=== PATIENT | male | born 1980 | race Asian ===

== ENCOUNTER 2016-11-29 14:04 | Emergency (ER) | payer OTHER ==
[2016-11-29 14:11] VITALS: BP 133/83
--- NOTE | 2016-11-29 14:50 | UC ---
Lower Extremity/Ankle HPI - HPI Summary HPI Summary: 36 yo male with right great toe pain x 1 day His reminded him that he had a trivial injury to that foot the day before the onset of pain red pain with wt bearing - History of Current Complaint Chief Complaint: UCLowerExtremity Stated Complaint: TOE PAIN Time Seen by Provider: 11/29/16 14:38 Hx Obtained From: Patient Onset/Duration: Gradual Onset, Lasting Hours Severity Initially: Moderate Severity Currently: Moderate Pain Intensity: 6 Pain Scale Used: 0-10 Numeric Aggravating Factor(s): Standing, Ambulation Alleviating Factor(s): Rest, Elevation, OTC Meds Able to Bear Weight: Yes - Allergies/Home Medications Allergies/Adverse Reactions: Allergies Allergy/AdvReac Type Severity Reaction Status Date / Time No Known Allergies Allergy Verified 11/29/16 14:11 PMH/Surg Hx/FS Hx/Imm Hx Previously Healthy: Yes - Surgical History Surgical History: None - Family History Known Family History: Positive: Hypertension - Social History Alcohol Use: Occasionally Substance Use Type: None Smoking Status (MU): Never Smoked Tobacco Review of Systems Constitutional: Negative Skin: Negative Eyes: Negative ENT: Negative Respiratory: Negative Cardiovascular: Negative Gastrointestinal: Negative Genitourinary: Negative Motor: Negative Neurovascular: Negative Musculoskeletal: Negative Neurological: Negative Psychological: Negative All Other Systems Reviewed And Are Negative: Yes Physical Exam Triage Information Reviewed: Yes Appearance: Well-Appearing, No Pain Distress, Well-Nourished Vital Signs: Initial Vital Signs Temp 98.1 F 11/29/16 14:09 Pulse 109 11/29/16 14:09 Resp 12 11/29/16 14:09 BP 133/83 11/29/16 14:09 Pulse Ox 99 11/29/16 14:09 Vital Signs Reviewed: Yes Eyes: Positive: Conjunctiva Clear ENT: Positive: Hearing grossly normal. Negative: Nasal congestion, Nasal drainage, Trismus, Muffled/hoarse voice Neck: Positive: Supple, Nontender Respiratory: Positive: Lungs clear, Normal breath sounds, No respiratory distress, No accessory muscle use Cardiovascular: Positive: RRR, No Murmur Musculoskeletal: Positive: Other: Neurological Exam: Normal Neurological: Positive: Alert Psychological Exam: Normal Skin Exam: Other Lower Extremity Course/Dx - Differential Dx/Diagnosis Provider Diagnoses: gout Discharge - Discharge Plan Condition: Stable Disposition: HOME Prescriptions: Indomethacin CAP* [Indocin CAP*] 50 mg PO TID PRN #15 cap PRN Reason: Pain Patient Education Materials: Gout (ED) Referrals: No Primary Care Phys,NOPCP [Primary Care Provider] - Additional Instructions: see your MD in a couple of weeks
--- NOTE | 2016-11-29 15:21 | RAD ---
INDICATION: Right great toe pain. TECHNIQUE: 3 views of the right great toe were obtained. FINDINGS: There is mild hallux valgus deformity. There is soft tissue swelling which is most prominent at the metatarsophalangeal joint. No acute fracture is seen. There is a well-corticated bony density present at the base of the distal phalanx possibly representing an old fracture fragment or accessory ossicle. 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 IMPRESSION: SOFT TISSUE SWELLING, NO ACUTE FRACTURE IS SEEN.
== END 2016-11-29 15:45 | disposition home or self-care (01) ==
LOC: UCEAST 14:04
DX: M10.9 Gout, unspecified (principal)
CPT/HCPCS: 99202; G0463